=== PATIENT | male | born 1980 | race African-American/Black ===

== ENCOUNTER 2022-04-16 11:33 | Outpatient (CLI) | payer BC ==
[2022-04-16 12:12] LABS: #Basophils 0.1 thou/uL (0.0-0.2); #Eosinphils 0.2 thou/uL (0.0-0.7); #Lymphocytes 2.6 thou/uL (1.20-3.40); #Monocytes 0.7 thou/uL (0.11-0.59); #Neutrophils 2.9 thou/uL (1.40-6.50); %Basophils 1.5 % (0.0-1.0); %Eosinophils 3.5 % (0.0-10.0); %Lymphocytes 40.1 % (21.0-51.0); %Monocytes 10.7 % (0.0-10.0); %Neutrophils 44.3 % (42.0-75.0); Hemoglobin 14.7 g/dL (14.0-18.0); Mean Corpuscular HGB CONC 32.2 g/dL (32.0-36.0); Mean Corpuscular Hemoglobin 30.1 pg (27.0-31.0); Mean Corpuscular Volume 93.3 fl (78.0-98.0); Mean Platelet Volume 7.9 fL (7.4-10.4); Platelet Count 218 10x3/uL (130-400); RBC Distribution Width 11.8 % (11.5-14.5); White Blood Cell (WBC) Count 6.5 10x3/uL (4.8-10.8)
[2022-04-16 12:30] LABS: ALT (SGPT) 62 U/L (8-55); AST (SGOT) 33 U/L (5-34); Albumin 4.1 g/dL (3.5-5.0); Alkaline Phosphatase 65 U/L (40-110); Anion Gap 10 mmol/L (10-20); BUN (Urea Nitrogen) 13 mg/dL (8.9-20.6); Bilirubin, Total 0.3 mg/dL (0.2-1.2); Calc. Creatinine Clearance 0 mL/min (70-130); Calcium 9.1 mg/dL (7.8-10.44); Carbon Dioxide 28 mmol/L (22-29); Chloride 106 mmol/L (98-107); Estimated GFR 112; Globulin 3.1 g/dL (2.4-3.5); Glucose 65 mg/dL (70-105); Potassium 3.9 mmol/L (3.5-5.1); Protein, Total 7.2 g/dL (6.0-8.3); Sodium 140 mmol/L (136-145)
== END 2022-04-16 11:34 | disposition home or self-care (01) ==
LOC: MADRAD 11:33
PROVIDERS: ATTEND Internal Medicine
DX: I10 Essential (primary) hypertension (principal); M54.42 Lumbago with sciatica, left side
CPT/HCPCS: 36415; 72100; 80053; 85025

== ENCOUNTER 2024-01-29 15:51 | Emergency (ER) | payer BC ==
[2024-01-29] MEDS ORDERED: Sulfameth/Trimethoprim DS 800-160mg TAB ONE (17:01)
== END 2024-01-29 17:07 | disposition home or self-care (01) ==
LOC: MADERS 15:51
DX: L02.92 Furuncle, unspecified (principal); I10 Essential (primary) hypertension; F17.200 Nicotine dependence, unspecified, uncomplicated
CPT/HCPCS: 99282